=== PATIENT | male | born 1980 | race Caucasian/White ===

== ENCOUNTER → 2016-06-27 | Outpatient (CLI) | payer OTHER ==
--- NOTE | 2016-06-27 09:19 | US ---
Ultrasound of the Abdomen Limited History: R 10.11, R 74.8, right upper quadrant Abdominal pain. Comparison: October 2013 Findings: Gallbladder: No shadowing calculi, wall thickening, or pericholecystic fluid. Common bile duct is 3 m m in diameter which is normal. Liver: Diffusely increased in echogenicity without definite focal lesions and measures 18 cm in lengt h. Renal: Right kidney measures 11.4 x 6.4 x 6.1 cm without hydronephrosis. Pancreas: Obscured by bowel gas. Aorta: Visualized upper abdominal aorta demonstrates no aneurysm. Impression: 1. No cholelithiasis or biliary ductal dilation. 2. Hepatomegaly and hepatic steatosis which limits evaluation for hepatic lesions. 3. Consider CT imaging if clinically indicated.
== END ==
LOC: CIMAGING 08:24
PROVIDERS: ATTEND Physician Assistant
DX: R10.11 Right upper quadrant pain (principal); R74.8 Abnormal levels of other serum enzymes
CPT/HCPCS: 76705-PO

== ENCOUNTER 2018-10-25 17:41 | Emergency (ER) | payer OTHER ==
--- NOTE | 2018-10-25 18:47 | EDPHY ---
H & P Time Seen by Provider: 10/25/18 17:50 HPI/ROS: CHIEF COMPLAINT: High blood pressure HISTORY OF PRESENT ILLNESS: Patient states that he was in [facility] today and his blood pressure was elevated. This concerned him as it was higher than so he came in for evaluation. On he went in to see his primary care as he had cold symptoms. He was noted to have elevated blood pressure at that time but no treatment was started. He is asymptomatic, specifically he denies headache, vision changes, chest pain, shortness of breath , edema, urinary problems, abdominal pain or back pain. He states he has been a little bit more tired than usual. He takes no medications and denies any use of [id number] medications for his cold. He was on metformin for type 2 diabetes but this was discontinued by his physician 1/2 to 2 years ago. He did have a complete eye exam and was given a "clean bill of health" also about 1 and half years ago. He has not had his A1c checked recently. REVIEW OF SYSTEMS: Constitutional: No fever, no chills. Eyes: No discharge. ENT: No sore throat. Cardiovascular: No chest pain, no palpitations. Respiratory: No cough, no shortness of breath. Gastrointestinal: No abdominal pain, no vomiting. Genitourinary: No dysuria. Musculoskeletal: No back pain. Skin: No rashes. Neurological: No headache. General Appearance: Alert, no distress. Eyes: Pupils equal and round no pallor or injection. ENT, Mouth: Mucous membranes moist. Respiratory: There are no retractions, lungs are clear to auscultation. Cardiovascular: Regular rate and rhythm. Gastrointestinal: Abdomen is soft and nontender, no masses, bowel sounds normal. Neurological: Awake, alert, cranial nerves intact, no focal neurologic deficits. Skin: Warm and dry, no rashes. Musculoskeletal: Neck is supple nontender. Extremities are symmetrical, full range of motion, no edema. Psychiatric: Patient is oriented X 3, there is no agitation. Medical/surgical history: No surgeries. Previous type 2 diabetes. Social history: Nonsmoker. Smoking Status: Light smoker Constitutional: Initial Vital Signs Temperature (C) 36.6 C 10/25/18 17:49 Heart Rate 72 10/25/18 17:49 Respiratory Rate 16 10/25/18 17:49 Blood Pressure 201/127 H 10/25/18 17:49 O2 Sat (%) 98 10/25/18 17:49 O2 Delivery Mode Room Air Allergies/Adverse Reactions: No Known Allergies Allergy (Unverified 10/25/18 17:55) Home Medications: Medication Instructions Recorded NK [No Known Home Meds] 10/25/18 Medical Decision Making - Data Points Laboratory Results: 10/25/18 18:52 POC Sodium 131 mEq/L L mEq/L (135-145) POC Potassium 4.0 mEq/L mEq/L (3.3-5.0) POC Chloride 103.0 mEq/L mEq/L (97-110) POC Total CO2 27 mEq/L mEq/L (22-31) POC BUN 10 mg/dL mg/dL (7-23) POC Creatinine 0.5 mg/dL L mg/dL (0.7-1.3) POC Glucose 179 mg/dL H mg/dL (70-100) POC Calcium 9.9 mg/dL mg/dL (8.5-10.4) Point of Care Test Results: Chemistry 10/25/18 18:52 POC Sodium 131 mEq/L L mEq/L (135-145) POC Potassium 4.0 mEq/L mEq/L (3.3-5.0) POC Chloride 103.0 mEq/L mEq/L (97-110) POC Total CO2 27 mEq/L mEq/L (22-31) POC BUN 10 mg/dL mg/dL (7-23) POC Creatinine 0.5 mg/dL L mg/dL (0.7-1.3) POC Glucose 179 mg/dL H mg/dL (70-100) POC Calcium 9.9 mg/dL mg/dL (8.5-10.4) Departure - Departure Clinical Impression: Hyponatremia, Hyperglycemia Hypertension Qualifiers: Hypertension type: unspecified Qualified Code(s): I10 - Essential (primary) hypertension Condition: Good Instructions: Hypertension (ED), Hyponatremia (ED) Additional Instructions: Call your primary care doctor tomorrow for follow-up this week without fail. Return to the emergency department for new or worsening symptoms. Referrals: Danna Peguero PA [Primary Care Provider] - As per Instructions
[2018-10-25 19:46] VITALS: BP 174/118
== END 2018-10-25 19:51 | disposition home or self-care (01) ==
LOC: CED 17:41
DX: I10 Essential (primary) hypertension (principal); E87.1 Hypo-osmolality and hyponatremia; R73.9 Hyperglycemia, unspecified; Z86.39 Personal history of other endocrine, nutritional and metabolic disease
CPT/HCPCS: 80048-ER; 99283-ER